=== PATIENT | male | born 1970 | race Caucasian/White ===

== ENCOUNTER 2017-11-23 15:08 | Outpatient (CLI) | payer BC ==
[2017-11-23 15:37] LABS: BASOPHILS % 0.5 (0.0-1.5); EOSINOPHILS % 2.2 % (0.0-6.8); MEAN CORPUSCULAR HEMOGLOBIN 33.9 pg (28.0-34.0); MEAN CORPUSCULAR VOLUME 97.8 fl (80.0-100.0); MONOCYTES % 4.6 % (0.0-11.0); NEUTROPHILS # 3.9 # k/uL (1.4-7.7)
[2017-11-23 16:03] LABS: eGFR (African) > 60; eGFR (Non-African) > 60
== END 2017-11-23 15:10 ==
LOC: LAB 15:08
PROVIDERS: ATTEND Physician Assistant
DX: R42 Dizziness and giddiness (principal); R53.83 Other fatigue
CPT/HCPCS: 36415; 80053; 82607; 82652; 84439; 84443; 84481; 85025

== ENCOUNTER 2018-02-01 12:01 | Outpatient (CLI) | payer BC ==
--- NOTE | 2018-02-01 15:48 | Diagnostic Imaging Report ---
ALDO NGUYEN [facility] [id number] [facility] [address] [id number] Report Submission Date: Feb 01, 2018 12:30:08 PM CDT Patient Study Name: BONI KIDD Date: Feb 01, 2018 12:06:39 PM CDT Modality Type: DX Gender: M Description: ABDOMEN : 74 Institution: [facility] Physician: LADO NGUYEN Examination: Abdomen History: LLQ PAIN WITH SOME NAUSEA SINCE 01/30/18 (Hx) Findings: 3 views obtained of the abdomen. No abnormal dilation of the large or small bowel. Moderate stool throughout the large bowel. No suspicious calcification projecting over the renal fossa or the lower pelvic region. Osseous structures are appropriate for age. Impression: Moderate large bowel stool. No obstruction. Numerous air filled loops of small bowel without abnormal dilation. No suspicious calcifications by plain film sensitivity. Electronically signed on Feb 01, 2018 12:30:08 PM CDT by: Roc MATT
== END 2018-02-01 12:03 ==
LOC: RAD 12:01
PROVIDERS: ATTEND Physician Assistant
DX: R10.9 Unspecified abdominal pain (principal)
CPT/HCPCS: 74019